=== PATIENT | female | born 2005 | race Caucasian/White ===

== ENCOUNTER 2024-10-20 13:14 | Emergency (ER) | payer BC, SELFPAY ==
--- NOTE | 2024-10-20 13:30 | ECG_ITS ---
Test Date: 2024-10-20 13:37:22 Measurements Intervals [place] Rate: 96 P: 27 OR: 145 QRS: 58 QRSD: 84 T: -1 QT: 358 QTc: 454 Interpretive Statements SINUS RHYTHM NONSPECIFIC T-WAVE ABNORMALITY No previous ECG available for comparison Electronically Signed On 10-20-2024 22:33:09 CDT by Earnest Valentin M.D.
[2024-10-20 13:39] VITALS: BP 132/88; PULSE 99; RESP 16; TEMP 36.6; O2SAT 100
--- NOTE | 2024-10-20 14:04 | ED.GENADULT ---
HPI - General Adult General Chief complaint: Chest Pain Stated complaint: Chest Pain Time Seen by Provider: 10/20/24 13:51 Source: patient and RN notes reviewed Mode of arrival: ambulatory Limitations: no limitations History of Present Illness HPI narrative: Patient presents today complaining of 5 day history chest discomfort and palpitations as well as chest pressure. She has vomited 1 time since onset of symptoms. Also states she is so anxious she, ?can't function, leading to decreased sleep and food intake. Patient does have history of anxiety and was started on venlafaxine 5 days ago. States it has not started helping yet. Denies shortness of breath, abdominal pain, vomiting, headache, numbness or tingling, fever, or any additional symptoms. Denies any cardiac history. States her mom wanted her to come into urgent care to get an EKG today Related Data Home Medications ?Medication ?Instructions ?Recorded ?Confirmed ?Last Taken ?Type norgestimate 0.25 mg-ethinyl 1 tablet PO DAILY 10/20/24 10/20/24 Unknown History estradiol 0.035 mg tablet (Esha) venlafaxine 37.5 mg 37.5 mg PO QPM 10/20/24 10/20/24 Unknown History capsule,extended release 24 hr Allergies Allergy/AdvReac Type Severity Reaction Status Date / Time amoxicillin (From Amoxil) Allergy Mild Hives Verified 10/20/24 13:27 PMFSH Comments At time of signature, I have reviewed and agree with nursing past medical, surgical, social and family history unless otherwise noted. Please see nursing chart for further information. There is no relevant family history pertinent to the presenting complaint Exam Narrative: GENERAL: Well-appearing, well-nourished, and in no acute distress. HEAD: Normocephalic, atraumatic. EYES: EOMI. No redness or drainage. Conjunctivae normal. ENT: Mucous membranes pink and moist. Nares clear. No rhinorrhea. TMs normal bilaterally. Throat normal. Uvula midline. NECK: Normal AROM. Supple. No lymphadenopathy. CHEST: No respiratory distress. Clear to auscultation. Chest is nontender to palpation. HEART: Regular rate and rhythm. No murmur appreciated. Normal peripheral pulses. ABDOMEN: Soft, nontender, nondistended, normal active bowel sounds. MUSCULOSKELETAL: No bony tenderness. EXTREMITIES: Normal range of motion. No edema. SKIN: Warm, dry, no rash. Capillary refill normal. Normal skin turgor. NEURO: No focal deficits. Alert and oriented x3. Gait steady. PSYCH: Normal affect. No signs of depression or anxiety. Course Course Level of Care: Express Care Visit Vital Signs Vital signs: Vital Signs Temperature 97.8 F 10/20/24 13:39 Pulse Rate 99 10/20/24 13:39 Respiratory Rate 16 10/20/24 13:39 Blood Pressure 132/88 10/20/24 13:39 Pulse Oximetry 100 10/20/24 13:39 Temperature 97.8 F 10/20/24 13:39 Pulse Rate 99 10/20/24 13:39 Respiratory Rate 16 10/20/24 13:39 Blood Pressure 132/88 10/20/24 13:39 Pulse Oximetry 100 10/20/24 13:39 Reviewed Medical Decision Making MDM Narrative Medical decision making narrative: 19-year-old female patient presents with left-sided chest discomfort and pressure, nausea, palpitations, anxiety. States her anxiety is significant enough it is leading to decreased sleep and eating. She has been started on venlafaxine 5 days ago which is not yet helping. EKG shows sinus rhythm with nonspecific T-wave abnormality. Patient's exam is grossly normal. Symptoms consistent severe anxiety. Patient declined ER transfer for further evaluation of her symptoms. Prescription for hydroxyzine sent to pharmacy for p.r.n. use. Recommend scheduling a follow-up visit with PCP next week. Vital signs are currently stable. Anticipatory guidance given. Differential Diagnosis Differential Diagnosis: Musculoskeletal chest pain, palpitations, SVT, anxiety, panic attack Vital Signs Vital Signs: Vital Signs Temperature 97.8 F 10/20/24 13:39 Pulse Rate 99 10/20/24 13:39 Respiratory Rate 16 10/20/24 13:39 Blood Pressure 132/88 10/20/24 13:39 Pulse Oximetry 100 10/20/24 13:39 Temperature 97.8 F 10/20/24 13:39 Pulse Rate 99 10/20/24 13:39 Respiratory Rate 16 10/20/24 13:39 Blood Pressure 132/88 10/20/24 13:39 Pulse Oximetry 100 10/20/24 13:39 ECG Data EKG #1: Attestation: I personally reviewed and interpreted this ECG as follows: ECG completion date: 10/20/24 ECG completion time: 13:37 Prior ECG tracings: not available for review Interpretation: Sinus rhythm. Nonspecific T-wave abnormality. Heart rate 96. MT interval 145 Critical Care Time Critical Care Time Critical Care Time: No Discharge Plan Discharge Clinical Impression: Anxiety Patient Disposition: Home Condition: Stable Instructions: Anxiety (ED) Additional Instructions: Please take the hydroxyzine as prescribed. Continue your venlafaxine and follow-up with your PCP next week. As discussed, please go to the ER immediately if symptoms worsen this weekend. Your blood pressure was elevated above 120/80 today at Urgent Care. This puts you above the threshold for follow up. Please schedule a followup visit with your personal physician as soon as possible, for further evaluation and treatment. Even blood pressure exceeding 120/80 may indicate pre-hypertension. Patient Language: Nepali Prescriptions: New hydroxyzine HCl 50 mg tablet 50 mg PO QID PRN (Reason: anxiety) Qty: 20 0RF No Action norgestimate-ethinyl estradiol [Esha] 0.25-0.035 mg tablet 1 tablet PO DAILY venlafaxine 37.5 mg capsule,extended release 24hr 37.5 mg PO QPM Follow-up/Referrals: PHYSICIAN,PULL OVER MACHINE OPERATOR [Primary Care Provider] - Time of Disposition: 14:07
== END 2024-10-20 14:09 | disposition home or self-care (01) ==
PROVIDERS: Emergency Provider Nurse Practitioner
DX: F41.9 Anxiety disorder, unspecified (principal)
CPT/HCPCS: 93005; 99213; G0463

== ENCOUNTER 2025-01-28 17:13 | Emergency (ER) | payer BC, SELFPAY ==
--- NOTE | ~2025-01-28 | XR_ITS ---
Examination: XR chest 2V Clinical History: CHEST PAIN SOB Comparison: Chest pain, SOB Technique: PA and Lateral Findings: Cardiomediastinal silhouette normal size and configuration. Lungs clear. No acute bony abnormality. S-shaped scoliosis. IMPRESSION: 1. No acute cardiopulmonary findings. Reviewed, dictated and finalized at location R.
--- NOTE | 2025-01-28 17:15 | ECG_ITS ---
Test Date: 2025-01-28 17:20:11 Measurements Intervals [place] Rate: 91 P: 45 ND: 145 QRS: 62 QRSD: 85 T: 23 QT: 360 QTc: 444 Interpretive Statements SINUS RHYTHM MINIMAL Q WAVES- INFERIOR LEADS BORDERLINE T WAVE ABNORMALITY- ANTERIOR LEADS BORDERLINE ECG Compared to ECG 10/20/2024 13:37:22 NO SIGNIFICANT CHANGE Electronically Signed On 01-28-2025 20:47:27 CDT by Jc Marshall D.O.
--- OUTSIDE RECORDS SUMMARY | 2025-01-28 17:15 | XMS_ITS | Clinical Summary ---
Author Organization [facility] Address [address] [place] [id number] Care Team Providers Care Senior Accounting Specialist Name Role Phone Jinny Oliva MEAT GRADING MACHINE OPERATOR Primary Care Provider Allergies Active Allergy Reactions Criticality Noted Date Comments Amoxicillin Nausea And Vomiting Low 02/19/2015 Nausea and vomiting Sumatriptan Other/Unknown (See Comments) 09/19/2024 [place] high and jaw locked up Bupropion Depression 09/19/2024 Made depression worse Medications DELMAR 0.25-35 MG-MCG per tablet 03/21/2024 A ctive Active Problems No known active problems Encounters Date Type Department Care Team Description 12/28/2024 Refill [facility] [address] [place] [address] Jinny Oliva NP Medication Refill 11/17/2024 Telephone [facility] [address] [place] [address] Jinny Oliva NP Other (meds) from Last 3 Months Immunizations Immunization Administration Dates Next Due DTaP 07/16/2009,12/29/2005 DTaP/Hep B/IPV 04/01/2005,01/28/2005,2004 HPV, 9-Valent 06/10/2017,11/06/2015 Hepatitis A, Ped/Adol 2 dose 03/29/2014,11/30/19 10 Hepatitis B, Ped/Adolescent 2004 HiB 12/29/2005,01/28/2005,2004 IPV 07/16/2009 Influenza Quadrivalent, Pres ervative Free 05/01/2019,04/22/2018 MMR 07/16/2009,09/17/2005 Meningococcal Conjugate MCV4O (Menveo) 6 Pneumococcal Conjugate PCV7 12/29/2005,1 2004,01/28/2005,11/26 Tdap 11/06/2015 Varicella (Chickenpox) 11/29/2009,09/17/2005 Family History Medical History Relation Name Comments Diabetes Maternal Grandfather Diabetes Maternal Grandmother Diabetes Mother Relation Name Status Comments Maternal Grandfather Maternal Grandmother Mother Social History Tobacco Use Types Packs/Day Years Used Date Smoking Tobacco: Never Smokeless Tobacco: Never Tobacco Cessation:Counseling Given: Yes Alcohol Use Standard Drinks/Week Comments Never 0 (1 standard drink = 0.6 oz pur e alcohol) PHQ-2 Answer Date Recorded PHQ-2 Score 0 03/23/2024 Alcohol Use Answer Date Recorded Frequency of Alcohol Consumption Not on file 03/23/2024 Average Number of Drinks Not on file 024 Frequency of Binge Drinking Not on file 03/12 Alcohol Use Status Never 03/23/2024 Average alcohol consumption Not on file 03/12 Comments Unknown Sex and Gender Information Value Date Recorded Sex Assigned at Not on file Legal Sex Female 10:22 AM CDT Gender Identity Not on file Sexual Orientation Not on file Last Filed Vital Signs Vital Sign Reading Time Taken Comments Blood Pressure 138/92 09/19/2024 2:21 PM CDT Pulse 61 09/19/2024 2:21 PM CDT Temperature 36.6 C (97.8 F) 09/19/2024 2:21 PM CDT Respiratory Rate 16 09/19/2024 2:21 PM CDT Oxygen Saturation 99% 09/19/2024 2:21 PM CDT Inhaled Oxygen Concentration - - Weight 87.1 kg (192 lb) 09/19/2024 2:21 PM CDT Height 162.6 cm (5' 4) 09/19/2024 2:21 PM CDT Body Mass Index 32.96 09/19/2024 2:21 PM CDT Plan of Treatment Health Maintenance Due Date Last Done Comments HIV Screening 2004 Hepatitis C Screening ages 18 to 79 once 2004 Meningococcal B Vaccine (1 of 2 - Standard) 2020 Influenza Vaccine 11/10/2024 05/01/2019, 04/22/2018 COVID-19 Immunization ( - season) 2024 06/14/2021, 09/21/2020, 08/30/2020 DEPRESSION SCREENING 03/23/2025 03/23/2024 YEARLY WELLNESS EXAM 03/23/2025 03/23/2024, 07/28/19 23 BMI Above/Below Normal Parameters 09/19/2025 09/19/2024, 09/19/2024 ADULT TETANUS 11/05/2025 11/06/2015 DTaP/Tdap/Td Vaccines (7 - Td or Tdap) 11/05/2025 11/06/2015, 07/16/2009, 12/29/2005, Additional history exists Zoster Vaccine (Recombinant Vaccine) (1 of 2) 2054 HEPATITIS B VACCINES Completed 04/01/2005, 01/28/2005, 2004, Additional history exists HIB VACCINES Completed 12/29/2005, 01/10, 2004 Pneumococcal Vaccine: Peds to 50 & At-Risk Patients Aged Out 12/29/2005, 04/01/2005, 01/28/2005, Additional history exists No longer eligible based on patient's age to complete this topic IPV VACCINES Completed 07/16/2009, 03/13, 01/28/2005, Additional history exists MMR VACCINES Completed 07/16/2009, 09/17/2005 Varicella Vaccine Completed 11/29/2009, 09/17/2005 HEPATITIS A VACCINES Completed 03/29/2014, 11/30/19 10 MENINGOCOCCAL VACCINE Aged Out 11/06/2015 No ed ken eligible based on patient's age to complete this topic HPV VACCINES Completed 06/10/2017, 11/06/2015 ROTAVIRUS VACCINES Aged Out No longer eligible based on patient's age to complete this topic Insurance ANTHEM/BCBS Care Teams Senior Accounting Specialist Relationship Specialty Start Date End Date Jinny Oliva NP PCP - General Nurse Practitioner-Family 03/23/24
--- OUTSIDE RECORDS SUMMARY | 2025-01-28 17:15 | XMS_ITS | Clinical Summary ---
Author Organization [facility] Address [address] [place] [address] Care Team Providers Care Social Worker Clinical Name Role Phone Unavailable Primary Care Provider Unavailabl e Source Comments [facility],non-owned Affiliates and Associated Physician Practices is amultiple site organization consisting of ambulatory clinics and hospital sitesin [place], [place], [place] and [place]. This disclosure is being madepursuant to the Care Everywhere program and may not contain all information available regarding this patient. Last updated 17.[facility] Allergies Active Allergy Reactions Criticality Noted Date Comments Amoxicillin 02/19/2015 Nausea and vomiting Medications * Be aware that medications may not be up to date on this document. Alwaysverify current medications with the patient. Norgestim-Eth Estrad Triphasic (TRI-SPRINTEC PO) Active cetirizine (ZYRTEC) 10 MG tablet Take 1 (one) tablet by mouth at bedtime 30 tablet Active Additional Information Patient not taking.Reported on 07/30/2021 Active Problems No known active problems Social History Tobacco Use Types Packs/Day Years Used Date Smoking Tobacco: Never Smokeless Tobacco: Never Alcohol Use Standard Drinks/Week Comments No 0 (1 standard drink = 0.6 oz pur e alcohol) Comments Unknown Sex and Gender Information Value Date Recorded Sex Assigned at Not on file Legal Sex Female 12:15 PM REGION MANAGER Gender Identity Not on file Sexual Orientation Not on file Last Filed Vital Signs Vital Sign Reading Time Taken Comments Blood Pressure 112/68 06/26/2020 4:44 PM CDT Pulse 81 07/30/2021 11:22 AM CDT Temperature 36.7 C (98.1 F) 07/30/2021 11:22 AM CDT Respiratory Rate 18 07/30/2021 11:2 2 AM CDT Oxygen Saturation 99% 07/30/2021 11: 22 AM CDT Inhaled Oxygen Concentration - - Weight 68.8 kg (151 lb 11.2 oz) 022 11:22 AM CDT Height 162.6 cm (5' 4) 07/30/2021 11:2 2 AM CDT Body Mass Index 26.04 07/30/2021 11:22 AM CDT Plan of Treatment Health Maintenance Due Date Last Done Comments HIV SCREENING 09/17/2019 HPV VACCINE (1 - 3-dose series) 09/17/2019 CHLAMYDIA/GONORRHEA SCREENING 2020 MENINGOCOCCAL (Group B) VACCINE SHARED DECISION-MAKING (1 of 2 - Standard) 2020 HEPATITIS C SCREENING 09/12/2022 DTAP/TDAP/TD VACCINES (1 - Tdap) 09/17/2023 HEPATITIS B VACCINE (1 of 3 - 19+ 3-dose series) 09/17/2023 DEPRESSION SCREENING 04/12/2024 COVID-19 VACCINE (4 - 2024-2 6 season) 2024 06/14/2021, 09/21/2020, 08/30/2020 INFLUENZA VACCINE (#1) 2024 , 04/22/2018 ZOSTER VACCINE (1 of 2) 2054 HIB VACCINE Aged Out No longer eligi ble based on patient's age to complete this topic MENINGOCOCCAL GROUPS A/C/Y/W VACCINE Aged Out No longer eligible b ased on patient's age to complete this topic PNEUMOCOCCAL VACCINE Aged Out No long er eligible based on patient's age to complete this topic Insurance
[2025-01-28 17:22] VITALS: BP 128/81; PULSE 84; RESP 17; TEMP 36.6; O2SAT 100
[2025-01-28 17:37] LABS: Hematocrit 40.7 % (37.0-47.0); Hemoglobin 13.0 g/dL (12.0-15.0); Immature Granulocyte Percent A 0.4 % (0-0.5); Lymphocytes Absolute Auto 4.29 K/mm3 (0.9-3.2); Mean Corpuscular HGB Conc 31.9 g/dl (32-36); Mean Corpuscular Hemoglobin 27.7 pg (26-34); Mean Corpuscular Volume 86.8 fl (80-100); Nucleated Red Blood Cells Absolute Auto 0.000 K/mm3 (0.0-0.012); Nucleated Red Blood Cells Perc 0.0 % (0.0-0.2); Platelet Count Result 368 k/mm3 (150-375); Red Blood Count 4.69 M/mm3 (4.2-5.4); White Blood Count 14.3 K/mm3 (4.5-10.0)
[2025-01-28 17:46] LABS: INR 1.0; Partial Thromboplastin Time 29.4 Seconds (22.3-36.8); Prothrombin Time 13.4 Seconds (11.1-14.7)
[2025-01-28 17:50] LABS: Alanine Aminotransferase 18 U/L (6-35); Albumin Level 4.2 g/dL (3.5-5.1); Alkaline Phosphatase 67 U/L (38-126); Anion Gap 10 mmol/L (4-12); Aspartate Amino Transferase 23 U/L (14-36); Bilirubin,Total 0.6 mg/dL (0.2-1.3); Blood Urea Nitrogen 11 mg/dL (7-17); Calcium 9.2 mg/dL (8.4-10.2); Carbon Dioxide 21 mmol/L (22-30); Chloride 104 mmol/L (98-107); Estimated CRCL calculation 127 ml/min; Estimated Glomerular Filt Rate > 60; Glucose 87 mg/dL (65-110); Lipase 86 U/L (23-300); Potassium 3.8 mmol/L (3.4-5.0); Sodium 135 mmol/L (137-145); Total Protein 7.6 g/dL (6.3-8.2)
[2025-01-28 18:02] LABS: Troponin I < 0.012 ng/mL (0.000-0.034)
[2025-01-28 19:48] VITALS: PULSE 89
[2025-01-28 19:53] VITALS: BP 187/93; PULSE 90; RESP 16; O2SAT 100
[2025-01-28 19:54] VITALS: O2SAT 98
--- NOTE | 2025-01-28 20:09 | ECG_ITS ---
Test Date: 2025-01-28 20:16:27 Measurements Intervals [place] Rate: 81 P: 41 MN: 156 QRS: 55 QRSD: 89 T: 1 QT: 329 QTc: 383 Interpretive Statements SINUS RHYTHM CONSIDER INFERIOR INFARCT, AGE INDETERMINATE NONSPECIFIC T-WAVE ABNORMALITY- ANTERIOR LEADS BASELINE ARTIFACT- I, II, III, AVR, AVL, AVF ABNORMAL ECG Compared to ECG 01/28/2025 17:20:11 NO SIGNIFICANT CHANGE Electronically Signed On 01-28-2025 20:44:41 CDT by Jc Marshall D.O.
--- OUTSIDE RECORDS SUMMARY | 2025-01-28 20:20 | XMS_ITS | Clinical Summary ---
Author Organization [facility] Address [address] [place] [id number] Care Team Providers Care Conveyor Worker Name Role Phone Jinny Oliva REACH LIFT TRUCK DRIVER Primary Care Provider Allergies Active Allergy Reactions Criticality Noted Date Comments Amoxicillin Nausea And Vomiting Low 02/19/2015 Nausea and vomiting Sumatriptan Other/Unknown (See Comments) 09/19/2024 [place] high and jaw locked up Bupropion Depression 09/19/2024 Made depression worse Medications DELMAR 0.25-35 MG-MCG per tablet 03/21/2024 A ctive Active Problems No known active problems Encounters Date Type Department Care Team Description 12/28/2024 Refill [facility] [address] [place] [address] Jinny Oliva NP Medication Refill 11/17/2024 Telephone [facility] [address] [place] [address] Jinny Oliva NP Other (meds) [...] complete this topic Insurance ANTHEM/BCBS Care Teams Conveyor Worker Relationship Specialty Start Date End Date Jinny Oliva NP PCP - General Nurse Practitioner-Family 03/23/24
--- OUTSIDE RECORDS SUMMARY | 2025-01-28 20:20 | XMS_ITS | Clinical Summary ---
Author Organization [facility] Address [address] [place] [address] Care Team Providers Care Middle School Teacher Name Role Phone Unavailable Primary Care Provider Unavailabl e Source Comments [facility],non-owned Affiliates and Associated Physician Practices is amultiple site organization consisting of ambulatory clinics and hospital sitesin [place], [place], [place] and [place]. This disclosure is being madepursuant to the Care Everywhere program and may not contain all information available regarding this patient. Last updated 17.[facility] Allergies Active Allergy Reactions Criticality Noted Date [...] on file Legal Sex Female 12:15 PM HEAD PASTRY CHEF Gender Identity Not on file Sexual Orientation [...]
--- NOTE | 2025-01-28 20:21 | ED_ITS ---
HPI - Chest Pain General Chief Complaint: Chest Pain Stated Complaint: cp and SOB Time Seen by Provider: 01/28/25 19:43 History of Present Illness HPI narrative: 19-year-old female otherwise healthy presenting to the emergency depart with chest pain shortness a breath localized to her left chest. Onset about 4 hours ago. She has been having intermittent symptoms for last 2 months. States she was referred to labor relations representative but has not made this appointment yet. Has tried some anxiety medications that she was prescribed for this recently with no change in her symptoms. Symptoms are not constant come and go. 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 No syncope or presyncope. No nausea vomiting, fever, chills. Endorses a mild cough. No recent illnesses otherwise. No traumatic injuries. Denies chance of . Related Data Home Medications ?Medication ?Instructions ?Recorded ?Confirmed ?Last Taken ?Type norgestimate 0.25 mg-ethinyl 1 tablet PO DAILY 5 10/20/24 Unknown History estradiol 0.035 mg tablet (Esha) venlafaxine 37.5 mg 37.5 mg PO QPM 10/20/2410/10 Unknown History capsule,extended release 24 hr Allergies Allergy/AdvReac Type Severity Reaction Status Date / Time amoxicillin (From Amoxil) Allergy Mild Hives Verified 01/28/25 17:16 Review of Systems 2 Review of Systems: As reviewed above in HPI Exam 2 Narrative: GENERAL: [Well-appearing, well-nourished, and in no acute distress.] HEAD: [Normocephalic, atraumatic.] EYES: [PERRLA and EOMI.] ENT: Nares clear, no rhinorrhea or epistaxis. Mucous membranes moist. NECK: Supple. CHEST: [Clear to auscultation. No respiratory distress.] HEART: [Regular rate and rhythm]. No murmur heard. [Normal peripheral pulses.] ABDOMEN: [Soft, nondistended], [nontender], [No rigidity or guarding] EXTREMITIES: Normal range of motion. [No edema.] SKIN: Warm, dry, no rash. NEURO: [No focal deficits]. Alert and oriented [x3.] PSYCH: [Normal mood and affect.] Course Vital Signs Vital signs: Vital Signs Temperature 36.6 C 10/19/25 17:22 Pulse Rate 84 01/28/25 17:22 Respiratory Rate 17 01/28/25 17:22 Blood Pressure 128/81 01/28/25 17:22 Pulse Oximetry 100 01/28/25 17:22 Temperature 36.6 C 01/28/25 17:22 Pulse Rate 82 01/29/25 01:30 Respiratory Rate 18 01/29/25 01:30 Blood Pressure 142/66 H 01/29/25 01:30 Pulse Oximetry 99 01/29/25 01:30 Oxygen Delivery Room Air 01/28/25 19:54 MDM - Chest Pain MDM Narrative Medical decision making narrative: 19-year-old female otherwise healthy presenting to the emergency depart with chest pain shortness a breath localized to her left chest. Onset about 4 hours ago. She has been having intermittent symptoms for last 2 months. States she was referred to labor relations representative but has not made this appointment yet. Has tried some anxiety medications that she was prescribed for this recently with no change in her symptoms. Symptoms are not constant come and go. 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 No syncope or presyncope. No nausea vomiting, fever, chills. Endorses a mild cough. No recent illnesses otherwise. No traumatic injuries. Denies chance of . Patient is not any acute distress. No tachycardia, fever, hypoxemia. Blood pressure on triage 128/81. Not any acute respiratory distress and has clear breath sounds throughout. No loud murmur or friction rub appreciated. Strong symmetric pulses and no edema in the extremities. Symptoms described as improved with leaning forward mildly. Could be pneumonia, ACS, myocarditis, pericarditis, GERD. PE rule out criteria met no concern for thromboembolic disease based on history and physical at this time. Workup shows a slight leukocytosis of 14.3. No tachycardia, fever or hypoxemia. Normal glucose, normal hemoglobin. Normal platelet. Electrolytes are largely unremarkable. Normal creatinine. Normal LFTs. Negative troponin x2. Normal lipase. EKG shows sinus rhythm. No ST segment elevations, depressions or inversions. Normal QTC interval. Patient re-evaluated after initial treatment regimen did have improvement. At this time no obvious source of infection or illness and she remains hemodynamically stable. Already has a labor relations representative to follow up with. Will be sent home with Toradol and Pepcid for symptom control and return precautions. Medical Records Data Attestation: I reviewed the patient's medical records. Lab Data Attestation: I reviewed the patient's lab results. 01/28/25 17:28 01/28/25 17:28 Labs: Lab Results 01/28/25 01/28/25 Range/Units 17:28 20:22 WBC 14.3 H (4.5-10.0) K/mm3 RBC 4.69 (4.2-5.4) M/mm3 Hgb 13.0 (12.0-15.0) g/dL Hct 40.7 (37.0-47.0) % MCV 86.8 (80-100) fl MCH 27.7 (26-34) pg MCHC 31.9 L (32-36) g/dl RDW 13.1 (11.5-14.5) % Plt Count 368 (150-375) k/mm3 MPV 10.1 (7.4-10.4) fl Immature Gran % (Auto) 0.4 (0-0.5) % Neut % (Auto) 61.4 (45.5-73.1) % Lymph % (Auto) 30.0 (18.3-44.2) % [place] % (Auto) 5.3 (2.6-8.5) % Eos % (Auto) 2.3 (0-4.4) % Baso % (Auto) 0.6 (0.2-1.2) % Lymph # (Auto) 4.29 H (0.9-3.2) K/mm3 [place] # (Auto) 0.8 H (0.1-0.6) K/mm3 Eos # (Auto) 0.3 (0-0.3) K/mm3 Baso # (Auto) 0.1 (0.0-0.1) K/mm3 Abs Immat Gran (auto) 0.06 H (0.00-0.031) K/mm3 Absolute Neuts (auto) 8.8 H (1.3-6.7) K/mm3 Absolute Nucleated RBC 0.000 (0.0-0.012) K/mm3 Nucleated RBC % 0.0 (0.0-0.2) % PT 13.4 (11.1-14.7) Seconds INR 1.0 APTT 29.4 (22.3-36.8) Seconds Sodium 135 L (137-145) mmol/L Potassium 3.8 (3.4-5.0) mmol/L Chloride 104 (98-107) mmol/L Carbon Dioxide 21 L (22-30) mmol/L Anion Gap 10 (4-12) mmol/L BUN 11 (7-17) mg/dL Creatinine 0.63 L (0.7-1.0) mg/dL Estim Creat Clear Calc 127 ml/min Estimated GFR > 60 (59 - ) Glucose 87 (65-110) mg/dL Calcium 9.2 (8.4-10.2) mg/dL Total Bilirubin 0.6 (0.2-1.3) mg/dL AST 23 (14-36) U/L ALT 18 (6-35) U/L Alkaline Phosphatase 67 (38-126) U/L Troponin I < 0.012 < 0.012 (0.000-0.034) ng/mL Total Protein 7.6 (6.3-8.2) g/dL Albumin 4.2 (3.5-5.1) g/dL Lipase 86 (23-300) U/L Imaging Data Attestation: I personally reviewed and interpreted this imaging study as follows: My impression: No acute cardiopulmonary process. Discharge Plan Discharge Clinical Impression: Chest pain Patient Disposition: Home Condition: Stable Instructions: Antibiotic Form, Chest Pain (ED) Additional Instructions: Laboratory studies only showed a slightly elevated white count but otherwise were completely normal. No signs of any cardiac damage. Troponin x2 negative. EKG normal. Chest x-ray normal. Could potentially be a viral illness versus GI in nature but your symptoms did improved with medications here so we will send you home with them as needed. Follow-up with your labor relations representative and return with any recurrent or emergent concerns. Patient Language: [place] Prescriptions: New ketorolac 10 mg tablet 10 mg PO Q8H PRN (Reason: pain) 5 Days Qty: 20 0RF Rx Instructions: maximum total duration of 5 days from all oral, intranasal, or parenteral formulations famotidine [Pepcid] 20 mg tablet 20 mg PO BID Qty: 20 0RF No Action norgestimate-ethinyl estradiol [Esha] 0.25-0.035 mg tablet 1 tablet PO DAILY venlafaxine 37.5 mg capsule,extended release 24hr 37.5 mg PO QPM hydroxyzine HCl 50 mg tablet 50 mg PO QID PRN (Reason: anxiety) Qty: 20 0RF Follow-up/Referrals: PHYSICIAN,GAMING COMMISSIONER [Primary Care Provider, Internal Medicine] Time of Disposition: 00:25
[2025-01-28 20:53] LABS: Troponin I < 0.012 ng/mL (0.000-0.034)
[2025-01-28] MEDS: FAMOTIDINE 20 MG/2 ML VIAL IV PUSH (22:48)
[2025-01-28] MEDS: KETOROLAC 30 MG/ML VIAL (*BKC) IV PUSH (22:48)
[2025-01-28 22:52] VITALS: BP 136/61; PULSE 84; RESP 17; O2SAT 98
[2025-01-29 00:30] VITALS: BP 142/66; PULSE 82; RESP 18; O2SAT 99
[2025-01-29 01:30] VITALS: BP 142/66; PULSE 82; RESP 18; O2SAT 99
== END 2025-01-29 02:31 | disposition home or self-care (01) ==
PROVIDERS: Emergency Medicine; Emergency Provider Student in an Organized Health Care Education/Training Program
DX: R07.9 Chest pain, unspecified (principal); Z79.3 Long term (current) use of hormonal contraceptives; R94.31 Abnormal electrocardiogram [ECG] [EKG]
CPT/HCPCS: 36415; 71046; 80053; 83690; 84484; 85025; 85610; 85730; 93005; 96374; 96375; 99284; J1885